=== PATIENT | female | born 1945 | race Caucasian/White ===

== ENCOUNTER → 2016-12-31 | Outpatient (CLI) | payer OTHER | LOC: RAD 01:49 | DX: Z12.31 Encounter for screening mammogram for malignant neoplasm of breast (principal) ==

== ENCOUNTER → 2017-01-05 | Outpatient (CLI) | payer OTHER | LOC: RAD 08:31 | DX: N63 Unspecified lump in breast (principal) ==

== ENCOUNTER → 2017-06-20 | Outpatient (CLI) | payer OTHER | LOC: RAD 01:52 | DX: N60.01 Solitary cyst of right breast (principal); Z85.3 Personal history of malignant neoplasm of breast ==

== ENCOUNTER → 2017-12-19 | Outpatient (CLI) | payer OTHER | LOC: RAD 01:26 | DX: C50.312 Malignant neoplasm of lower-inner quadrant of left female breast (principal); Z17.1 Estrogen receptor negative status [ER-] ==

== ENCOUNTER → 2018-09-21 | Outpatient (CLI) | payer OTHER ==
[~2018-09-21] VITALS: Ht 172.7 cm; Wt 77.1 kg
[~2018-09-21] MED LIST: ALLERGY PLUS-S1 EACH PO; FLONASE 0.05%50 MCG NASAL; HYDROCHLOROTHIA25 M2 PO; MAGOX 400400 MG PO; VITAMIN D1000 UNI2 PO; ZADITOR5 M1 OPHTHALMIC
--- NOTE | 2018-09-23 10:54 | P ---
[facility] [address] [place] [address] PROCEDURE REPORT Name: KARIN VALENZUELA Elli Room #: REG [facility]#: [id number] Admission: 09/21/18 ������������������ Attend Phys: Chris Martin MD Discharge: ������������������ Date of : 43 Report #: [id number] THIS REPORT FOR: //name// CC: RADHA Peters BRIEF HISTORY: The patient is a 73-year-old woman for average risk screening colonoscopy. PREOPERATIVE DIAGNOSIS: Average risk screening colonoscopy. POSTOPERATIVE DIAGNOSES: Average risk screening colonoscopy and small internal hemorrhoids. MEDICATIONS: Deep sedation with propofol per Anesthesia. SPECIMEN: None. ESTIMATED BLOOD LOSS: None. PROCEDURE: Colonoscopy to cecum and terminal ileum. FINDINGS: Prior to propofol sedation, the procedure of colonoscopy discussed with the patient as well as potential risks and its complications. She indicates she understands and desires to proceed. The patient in left lateral decubitus position, digital examination was completed, which revealed no abnormalities. Subsequently, the Olympus video colonoscope was introduced in the rectum, advanced under direct vision to the cecum. Done with minimal difficulty. The cecum was identified by the ileocecal valve and the appendiceal orifice. I was able to visualize the distal segment of terminal ileum, which was inspected and noted to be unremarkable. At that point, the scope was slowly withdrawn and careful circumferential views obtained. Upon slow withdrawal of the scope, the prep was excellent. The mucosa was within normal limits, normal vascular pattern, normal light reflex. As we withdrew the scope, no neoplastic lesions were seen. She had normal colonic mucosa throughout the entire colon. Again, the colonic mucosa was completely normal throughout. The scope was withdrawn in the rectum and no abnormalities were seen. Upon retroflexion, no abnormalities were seen. Scope was withdrawn. The patient tolerated the procedure well. CONDITION OF THE PATIENT UPON DISCHARGE: Following procedure, the patient was drowsy, arousable, conversant and will be discharged home when fully ambulatory. INSTRUCTIONS TO THE PATIENT AND FAMILY AT THE TIME OF DISCHARGE: No neoplastic [address] [address] PROCEDURE REPORT Name: AGUSTOChetanKARIN Room #: [facility] [id number] Admission: 09/21/18 ������������������ Attend Phys: Chris Martin MD Discharge: ������������������ Date of : 43 Report #: [id number] lesions seen today. Suggest she return in 10 years for average risk screening colonoscopy. She should return to the care of Dr. Aguilar and return to see me as needed. Last colonoscopy was 10 years ago. Withdrawal time from the cecum was 12 minutes 46 seconds. ��������������������������������������������� <ELECTRONICALLY SIGNED> ���������������������������������������� By: Chris Martin MD ��������������������������������������������� 09/23/18 [id number] Chris Martin MD /nt
== END | disposition home or self-care (01) ==
LOC: GI 07:13
DX: Z12.11 Encounter for screening for malignant neoplasm of colon (principal); K64.8 Other hemorrhoids; I10 Essential (primary) hypertension; Z90.710 Acquired absence of both cervix and uterus; Z98.41 Cataract extraction status, right eye; Z98.42 Cataract extraction status, left eye; Z98.51 Tubal ligation status; Z98.890 Other specified postprocedural states; Z79.899 Other long term (current) drug therapy; Z85.3 Personal history of malignant neoplasm of breast
CPT/HCPCS: 62110; 62900

== ENCOUNTER → 2018-12-20 | Outpatient (CLI) | payer OTHER | LOC: RAD 00:39 | DX: Z12.31 Encounter for screening mammogram for malignant neoplasm of breast (principal) ==

== ENCOUNTER → 2019-12-24 | Outpatient (CLI) | payer OTHER | LOC: BC 09:04 | PROVIDERS: ATTEND Internal Medicine Hematology & Oncology | DX: Z12.31 Encounter for screening mammogram for malignant neoplasm of breast (principal) ==

== ENCOUNTER → 2020-12-24 | Outpatient (CLI) | payer OTHER | LOC: NUC 09:30 → BC 11:17 | PROVIDERS: ATTEND Internal Medicine Hematology & Oncology | DX: Z12.31 Encounter for screening mammogram for malignant neoplasm of breast (principal); Z13.820 Encounter for screening for osteoporosis; M81.0 Age-related osteoporosis without current pathological fracture; N64.89 Other specified disorders of breast ==